=== PATIENT | female | born 1960 | race African-American/Black ===

== ENCOUNTER → 2017-05-12 | Outpatient (CLI) | payer BC ==
--- NOTE | 2017-05-12 09:13 | RAD ---
Cervical spine, 3 views, 05/12/2017: History: Neck and right arm pain There is moderate disc space narrowing at C4-5, C5-6 and C6-7 with anterior and posterior marginal spurring. There are mild degenerative changes involving scattered facet joints bilaterally. No fracture or dislocation is identified. The prevertebral soft tissues are unremarkable. IMPRESSION: 1. Moderate multilevel degenerative change. 2. No acute cervical spine abnormality is detected.
--- NOTE | 2017-05-12 09:16 | RAD ---
Lumbar spine, 3 views, 05/12/2017: History: Low back and left leg pain The lumbar vertebral heights are well-maintained. There is mild narrowing of the L5-S1 disc space with a vacuum disc phenomena and mild marginal spurring. There is mild disc space narrowing and spurring at L4-5. There are mild degenerative changes involving facet joints bilaterally in the lower lumbar spine. No fracture or dislocation is identified. The paraspinous soft tissues are unremarkable. IMPRESSION: 1. Mild to moderate degenerative change in the lower lumbar spine. 2. No acute bony abnormality is detected.
== END | disposition home or self-care (01) ==
LOC: DXRADRC 07:45
PROVIDERS: ATTEND Physician Assistant
DX: M47.812 Spondylosis without myelopathy or radiculopathy, cervical region (principal); M47.896 Other spondylosis, lumbar region; M79.601 Pain in right arm; M79.605 Pain in left leg; G56.91 Unspecified mononeuropathy of right upper limb; R20.0 Anesthesia of skin
CPT/HCPCS: 72040; 72100

== ENCOUNTER → 2017-09-26 | Outpatient (CLI) | payer BC ==
--- NOTE | 2017-09-26 12:10 | RAD ---
Right RIBS with chest, 3 views, 10/27/2017: History: Fall, rib pain No rib fracture is identified. There is no evidence of underlying pneumothorax, hemothorax or pulmonary infiltrate. The heart size is normal. There are mild scattered spurs in the thoracic spine. IMPRESSION: No acute right rib abnormality is detected.
== END | disposition home or self-care (01) ==
LOC: DXRADRC 11:36
PROVIDERS: ATTEND Nurse Practitioner Family
DX: R07.81 Pleurodynia (principal); M53.84 Other specified dorsopathies, thoracic region; W19.XXXA Unspecified fall, initial encounter
CPT/HCPCS: 71101